=== PATIENT | male | born 1965 | race Caucasian/White ===

== ENCOUNTER 2024-07-29 10:53 | Outpatient (CLI) | payer MEDICAID | END 2024-07-29 23:59 | disposition home or self-care (01) | LOC: MRI 10:53 | PROVIDERS: ATTEND Podiatrist Foot & Ankle Surgery | DX: S96.811A Strain of other specified muscles and tendons at ankle and foot level, right foot, initial encounter (principal); M65.871 Other synovitis and tenosynovitis, right ankle and foot; R60.0 Localized edema; M79.671 Pain in right foot; M77.51 Other enthesopathy of right foot and ankle; X58.XXXA Exposure to other specified factors, initial encounter; Y93.89 Activity, other specified; Y92.89 Other specified places as the place of occurrence of the external cause; Y99.8 Other external cause status | CPT/HCPCS: 73721 ==